=== PATIENT | female | born 1985 | race Caucasian/White ===

== ENCOUNTER 2017-04-01 19:11 | Emergency (ER) | payer OTHER ==
[~2017-04-01] VITALS: Ht 177.8 cm; Wt 81.2 kg
[~2017-04-01 19:11] MED LIST: EXCEDRIN EXTRA1 EAC1 PO; GOLYTELY PACKE1 EACH PO; METHOCARBAMOL500 MG PO; METHOCARBAMOL750 MG PO; NAPROXEN500 MG PO; NORCO 5-325 TA1 EACH PO; OXYCODONE HCL5 MG PO
== END 2017-04-02 01:04 | disposition home or self-care (01) ==
LOC: ED 19:11
DX: R10.31 Right lower quadrant pain (principal); R93.5 Abnormal findings on diagnostic imaging of other abdominal regions, including retroperitoneum; J44.9 Chronic obstructive pulmonary disease, unspecified; F17.200 Nicotine dependence, unspecified, uncomplicated; Z90.89 Acquired absence of other organs; Z98.51 Tubal ligation status; Z79.82 Long term (current) use of aspirin
CPT/HCPCS: 36415; 74176; 74177; 80053; 81001; 83690; 84703; 85025; 96372; 96374; 96375; 99284; J1170; J2270; J2405; Q9967

== ENCOUNTER 2017-06-10 20:00 | Emergency (ER) | payer OTHER ==
[~2017-06-10] VITALS: Ht 177.8 cm; Wt 86.2 kg
[2017-06-10] MEDS ORDERED: TRAMADOL HCL50 MG PO (22:15)
[2017-06-10] MEDS ORDERED: PENICILLIN V P500 MG PO (22:15)
== END 2017-06-11 00:01 | disposition home or self-care (01) ==
LOC: ED 20:00
DX: K02.9 Dental caries, unspecified (principal); J44.9 Chronic obstructive pulmonary disease, unspecified; F17.200 Nicotine dependence, unspecified, uncomplicated; Z90.89 Acquired absence of other organs; Z79.82 Long term (current) use of aspirin
CPT/HCPCS: 99283

== ENCOUNTER 2017-07-06 18:20 | Emergency (ER) | payer OTHER ==
[~2017-07-06] VITALS: Ht 177.8 cm; Wt 86.2 kg
[~2017-07-06 18:20] MED LIST changes: +PENICILLIN V P500 MG PO; +TRAMADOL HCL50 MG PO
[2017-07-06] MEDS ORDERED: CITRATE OF MAG296 ML PO (19:06)
== END 2017-07-06 23:15 | disposition home or self-care (01) ==
LOC: ED 18:20
DX: K59.09 Other constipation (principal); J45.909 Unspecified asthma, uncomplicated; J44.9 Chronic obstructive pulmonary disease, unspecified; F17.200 Nicotine dependence, unspecified, uncomplicated; Z98.51 Tubal ligation status; Z79.82 Long term (current) use of aspirin; Z79.899 Other long term (current) drug therapy
CPT/HCPCS: 74177; 80053; 81001; 83690; 84703; 85025; 96374; 96375; 99284; J1170; J1885; J2405; Q9967

== ENCOUNTER 2017-11-24 16:21 | Emergency (ER) | payer OTHER ==
[~2017-11-24] VITALS: Ht 177.8 cm; Wt 108.9 kg
[~2017-11-24 16:21] MED LIST changes: +CITRATE OF MAG296 ML PO
[2017-11-24] MEDS ORDERED: EXCEDRIN EXTRA1 EAC1 PO (16:37)
== END 2017-11-24 16:40 | disposition home or self-care (01) ==
LOC: ED 16:21
DX: M25.561 Pain in right knee (principal)

== ENCOUNTER 2018-04-23 18:11 | Emergency (ER) | payer OTHER ==
[~2018-04-23] VITALS: Ht 177.8 cm; Wt 108.9 kg
== END 2018-04-23 19:25 | disposition home or self-care (01) ==
LOC: ED 18:11
DX: S60.211A Contusion of right wrist, initial encounter (principal); F17.200 Nicotine dependence, unspecified, uncomplicated; W23.0XXA Caught, crushed, jammed, or pinched between moving objects, initial encounter
CPT/HCPCS: 73110; 99283

== ENCOUNTER 2018-05-05 09:22 | Emergency (ER) | payer OTHER ==
[~2018-05-05] VITALS: Ht 177.8 cm; Wt 108.9 kg
--- OUTSIDE RECORDS SUMMARY | ~2018-05-05 | XMS | Clinical Summary ---
Demographics + + + | Address | [address] | | | [place] [address] | + + + | Home Phone | | + + + | Preferred Language | Unknown | + + + | Marital Status | | + + + | Congregation Affiliation | Unknown | + + + | Race | Unknown | + + + | Ethnic Group | Unknown | + + + Author + + + | Author | [facility] | | | and [place] | + + + | Organization | [facility] | | | and [place] [...] Team Providers + +------+ + | Care Telegraph Office Telephone Clerk Name | Role | Phone | + [...]
--- OUTSIDE RECORDS SUMMARY | ~2018-05-05 | XMS | Clinical Summary ---
Demographics + + + | Address | [address] | | | [place] [address] | + + + | Home Phone | | + + + | Preferred Language | Unknown | + + + | Marital Status | | + + + | Cheondoism Affiliation | Unknown | + + + | Race | Unknown | + + + | Ethnic Group | Unknown | + + + Author + + + | Author | [facility] | | | and [place] | + + + | Organization | [facility] | | | and [place] [...] Team Providers + +------+ + | Care Preform Machine Operator Name | Role | Phone [...]
[2018-05-05] MEDS ORDERED: ADVIL200 M1 PO (09:55)
== END 2018-05-05 09:35 | disposition home or self-care (01) ==
LOC: ED 09:22
DX: S69.91XA Unspecified injury of right wrist, hand and finger(s), initial encounter (principal); W17.89XA Other fall from one level to another, initial encounter

== ENCOUNTER 2018-06-24 18:25 | Emergency (ER) | payer OTHER ==
[~2018-06-24] VITALS: Ht 177.8 cm; Wt 108.9 kg
--- OUTSIDE RECORDS SUMMARY | ~2018-06-24 | XMS | Clinical Summary ---
Demographics + + + | Address | [address] | | | [place] [address] | + + + | Home Phone | | + + + | Preferred Language | Unknown | + + + | Marital Status | | + + + | Worship Affiliation | Unknown | + + + | Race | Unknown | + + + | Ethnic Group | Unknown | + + + Author + + + | Author | [facility] | | | and [place] | + + + | Organization | [facility] | | | and [place] | + + + | Address | Unknown | + + + | Phone | Unavailable | + + + Support + + +---------+ + | Name | Relationship | Address | Phone | + + +---------+ + | Iris Tapia | ECON | Unknown | | + + +---------+ + Care Team Providers + +------+ + | Care Construction Superintendent Name | Role | Phone | + +------+ + | No, Physician | PP | Unavailable | + +------+ + Allergies No Known Allergies Current Medications + + +--------+---------+------+------+-------+ | Prescription | Sig. | Disp. | Refills | Star | End | Statu | | | | | | t | Date | s | | | | | | Date | | | + + +--------+---------+------+------+-------+ | UNABLE TO FIND | Minithin-OTC diet | | | | | Activ | | | pill. | | | | | e | + + +--------+---------+------+------+-------+ | meloxicam (MOBIC) | Take 1 tablet by | 20 | 0 | 05/1 | | Activ | | 7.5 mg | mouth Daily as | tablet | | 5/20 | | e | | tabletIndications: | needed for Pain. | | | 17 | | | | Low back pain, | | | | | | | | unspecified back | | | | | | | | pain laterality, | | | | | | | | unspecified | | | | | | | | chronicity, with | | | | | | | | sciatica presence | | | | | | | | unspecified | | | | | | | + + +--------+---------+------+------+-------+ Active Problems No known active problems Social History + + + +--------+------+ | Tobacco Use | Types | Packs/Day | Years | Date | | | | | Used | | + + + +--------+------+ | Current Every Day | Cigarettes | 1 | | | | Smoker | | | | | + + + +--------+------+ + +---+---+---+ | Smokeless Tobacco: | | | | | Never Used | | | | + +---+---+---+ + + +---------+ + | Alcohol Use | Drinks/We | oz/Week | Comments | | | ek | | | + + +---------+ + | Yes | 0 | 0.0 | rarely | | | Standard | | | | | drinks or | | | | | | | | | | equivalen | | | | | t | | | + + +---------+ + + + + | Sex Assigned at | Date Recorded | | | | + + + | Not on file | | + + + Last Filed Vital Signs + + + + | Vital Sign | Reading | Time Taken | + + + + | Blood Pressure | 126/65 | 02/01/20171226 PDT | + + + + | Pulse | 105 | 02/01/20171226 PDT | + + + + | Temperature | 37.3 C (99.1 F) | 02/01/20171226 PDT | + + + + | Respiratory Rate | 16 | 02/01/20171226 PDT | + + + + | Oxygen Saturation | 100% | 02/01/20171226 PDT | + + + + | Inhaled Oxygen | - | - | | Concentration | | | + + + + | Weight | 85.6 kg (188 lb 12.8 | 02/01/2017 1227 PDT | | | oz) | | + + + + | Height | 177.8 cm (5' 10") | 02/01/2017 1227 PDT | + + + + | Body Mass Index | 27.09 | 02/01/2017 1227 PDT | + + + + Plan of Treatment + + + + + | Health Maintenance | Due Date | Last Done | Comments | + + + + + | Vaccine: | | | | | Dtap/Tdap/Td (1 - | 4 | | | | Tdap) | | | | + + + + + | Vaccine: | | | | | Pneumococcal 19-64 | 4 | | | | (PPSV23 only) Medium | | | | | Risk (1 of 1 - | | | | | PPSV23) | | | | + + + + + | Cervical Cancer | | | | | Screening (Pap) | 5 | | | + + + + + | Vaccine: Influenza | | | | | (#1) | 8 | | | + + + + + Results Not on filefrom Last 3 Months
--- OUTSIDE RECORDS SUMMARY | ~2018-06-24 | XMS | Clinical Summary ---
Demographics + + + | Address | [address] | | | [place] [address] | + + + | Home Phone | | + + + | Preferred Language | Unknown | + + + | Marital Status | | + + + | Voodoo Affiliation | Unknown | + + + | Race | Unknown | + + + | Ethnic Group | Unknown | + + + Author + + + | Author | [facility] | | | and [place] | + + + | Organization | [facility] | | | and [place] | [...] Team Providers + +------+ + | Care Commissions Manager Name | Role | Phone | [...]
[~2018-06-24 18:25] MED LIST changes: +ADVIL200 M1 PO
--- OUTSIDE RECORDS SUMMARY | 2018-06-24 18:30 | XMS ---
PreManage Notification: DAFNE HANSEN Security Supervisor Carding Events No recent Security Events currently on file CRITERIA MET - Group Notification - [facility] - Has Care Guidelines CARE PROVIDERS There are no care providers on record at this time. Guidelines Source: [facility] Guidelines Date: 04/07/2017 Care Coordination: ENCOURAGE PATIENT TO FIND AND USE A PCP FOR CHRONIC AND NON-EMERGENT MEDICAL PROBLEMS. GIVE PATIENT MEDICAL OFFICE ASSISTANTKNOT SAW OPERATOR INFORMATION TO CALL FOR HELP AND QUESTIONS. CHRIS ESPINOSA, RN [phone] [employer] [facility] Yogesh VISIT COUNT (12 MO.) 5 [facility] H. TOTAL 5 NOTE: Visits indicate total known visits. ED/UCC VISIT TRACKING (12 MO.) 06/24/2018 18:26 [facility] [place] [facility] [place] TYPE: Emergency COMPLAINT: - ABD PAIN/BLOOD IN STOOL 05/05/2018 09:22 [facility] [place] [facility] [place] TYPE: Emergency COMPLAINT: - R WRIST INJURY DIAGNOSES: - Unspecified injury of right wrist, hand and finger(s), initial encounter - Other fall from one level to another, initial encounter 04/23/2018 18:12 [facility] [place] [facility] [place] TYPE: Emergency COMPLAINT: - RT WRIST INJURY DIAGNOSES: - Caught, crushed, jammed, or pinched between moving objects, initial encounter - Unspecified injury of right wrist, hand and finger(s), initial encounter - Nicotine dependence, unspecified, uncomplicated - Contusion of right wrist, initial encounter 11/24/2017 16:22 [facility] [place] TYPE: Emergency COMPLAINT: - R KNEE PAIN/NO INJURY DIAGNOSES: - Pain in right knee 07/06/2017 18:[address] [facility] [place] TYPE: Emergency COMPLAINT: - ABD PAIN DIAGNOSES: - Chronic obstructive pulmonary disease, unspecified - Other constipation - residential (current) use of aspirin - Other exterminator helper (current) drug therapy - Nicotine dependence, unspecified, uncomplicated - Tubal ligation status - Unspecified asthma, uncomplicated - Left lower quadrant pain INPATIENT VISIT TRACKING (12 MO.) No inpatient visits to display in this time frame [email or web address]
[2018-06-24] MEDS ORDERED: CITRATE OF MAG296 ML PO (18:53)
[2018-06-24] MEDS ORDERED: DICYCLOMINE HCL10 MG PO (22:23)
[2018-06-26] MEDS ORDERED: DICYCLOMINE HCL10 MG PO (08:09)
== END 2018-06-24 22:58 | disposition home or self-care (01) ==
LOC: ED 18:25
DX: R19.7 Diarrhea, unspecified (principal); J44.9 Chronic obstructive pulmonary disease, unspecified; F17.200 Nicotine dependence, unspecified, uncomplicated
CPT/HCPCS: 74177; 80053; 81001; 83690; 84703; 85025; 96374; 96375; 96376; 99284; J2270; J2405; Q9967

== ENCOUNTER 2018-12-18 16:03 | Emergency (ER) | payer OTHER ==
[~2018-12-18] VITALS: Ht 177.8 cm; Wt 108.9 kg
--- OUTSIDE RECORDS SUMMARY | ~2018-12-18 | XMS | Clinical Summary ---
Demographics + + + | Address | [address] | | | [place] [address] | + + + | Home Phone | | + + + | Preferred Language | Unknown | + + + | Marital Status | | + + + | Jainism Affiliation | Unknown | + + + | Race | Unknown | + + + | Ethnic Group | Unknown | + + + Author + + + | Author | [facility] | | | and [place] | + + + | Organization | [facility] | | | and [place] [...] Team Providers + +------+ + | Care Center Mgr Name | Role | Phone | + [...]
--- OUTSIDE RECORDS SUMMARY | ~2018-12-18 | XMS | Clinical Summary ---
Demographics + + + | Address | [address] | | | [place] [address] | + + + | Home Phone | | + + + | Preferred Language | Unknown | + + + | Marital Status | | + + + | Islam Affiliation | Unknown | + + + | Race | Unknown | + + + | Ethnic Group | Unknown | + + + Author + + + | Author | [facility] | | | and [place] | + + + | Organization | [facility] | | | and [place] [...] Team Providers + +------+ + | Care Spinning Frame Fixer Name | Role | Phone | + [...]
[~2018-12-18 16:03] MED LIST changes: +DICYCLOMINE HCL10 MG PO
--- OUTSIDE RECORDS SUMMARY | 2018-12-18 16:06 | XMS ---
PreManage Notification: DAFNE HANSEN Security Campus Receptionist Events No recent Security Events currently on file CRITERIA MET - Group Notification - [facility] - Has Care Guidelines CARE PROVIDERS There are no care providers on record at this time. Guidelines Source: [facility] Guidelines Date: 04/07/2017 Care Coordination: ENCOURAGE PATIENT TO FIND AND USE A PCP FOR CHRONIC AND NON-EMERGENT MEDICAL PROBLEMS. GIVE PATIENT CIGARETTE PACKERCAR BODY DESIGNER INFORMATION TO CALL FOR HELP AND QUESTIONS. CHRIS ESPINOSA, RN [phone] SOFTWARE SUPPORT TECHNICIAN [facility] Yogesh VISIT COUNT (12 MO.) 4 [facility] H. TOTAL 4 NOTE: Visits indicate total known visits. ED/UCC VISIT TRACKING (12 MO.) 12/18/2018 16:04 [facility] [place] [facility] [place] TYPE: Emergency COMPLAINT: - TOOTH/EAR PAIN 06/24/2018 18:[address] [facility] [facility] [place] TYPE: Emergency COMPLAINT: - ABD PAIN/BLOOD IN STOOL DIAGNOSES: - Diarrhea, unspecified - Generalized abdominal pain - Nicotine dependence, unspecified, uncomplicated - Chronic obstructive pulmonary disease, unspecified 05/05/2018 09:22 [facility] [place] [facility] [place] TYPE: Emergency COMPLAINT: - R WRIST INJURY DIAGNOSES: - Unspecified injury of right wrist, hand and finger(s), initial encounter - Other fall from one level to another, initial encounter 04/23/2018 18:12 [facility] [place] [facility] [place] TYPE: Emergency COMPLAINT: - RT WRIST INJURY DIAGNOSES: - Caught, crushed, jammed, or pinched between moving objects, initial encounter - Unspecified injury of right wrist, hand and finger(s), initial encounter - Nicotine dependence, unspecified, uncomplicated - Contusion of right wrist, initial encounter INPATIENT VISIT TRACKING (12 MO.) No inpatient visits to display in this time frame [id number]
== END 2018-12-18 16:22 | disposition home or self-care (01) ==
LOC: ED 16:03
DX: K08.89 Other specified disorders of teeth and supporting structures (principal); H92.09 Otalgia, unspecified ear

== ENCOUNTER 2019-06-21 18:55 | Emergency (ER) | payer OTHER ==
[~2019-06-21] VITALS: Ht 177.8 cm; Wt 108.9 kg
--- OUTSIDE RECORDS SUMMARY | ~2019-06-21 | XMS | Clinical Summary ---
Demographics + + + | Address | [address] | | | [place] [address] | + + + | Home Phone | | + + + | Preferred Language | Unknown | + + + | Marital Status | | + + + | Sabianism Affiliation | Unknown | + + + | Race | Unknown | + + + | Ethnic Group | Unknown | + + + Author + + + | Author | [facility] | | | and [place] | + + + | Organization | [facility] | | | and [place] | [...] Team Providers + +------+ + | Care Liner Machine Operator Name | Role | Phone | + [...] on file | | + + + + + + + | Job Start Date | Occupation | Industry | + + + + | Not on file | Not on file | Not on file | + + + + + + + + | Travel History | Travel Start | Travel End | + + + + + + | No recent travel history available. | + + Last Filed Vital Signs + + + + | Vital Sign | Reading | Time Taken | + + + + | Blood Pressure | 126/65 | 02/01/2017 1227 PDT | + + [...] | 85.6 kg (188 lb 12.8 | 02/01/20171226 PDT | | | oz) | | [...] | | | | | (#1) | 9 | | | + + + + + Results Not on filefrom Last 3 Months Advance Directives Patient has advance care planning documents on file. For more information, please contact:[facility] [place] [address]
--- OUTSIDE RECORDS SUMMARY | ~2019-06-21 | XMS | Clinical Summary ---
Demographics + + + | Address | [address] | | | [place] [address] | + + + | Home Phone | | + + + | Preferred Language | Unknown | + + + | Marital Status | | + + + | Baptist Affiliation | Unknown | + + + | Race | Unknown | + + + | Ethnic Group | Unknown | + + + Author + + + | Author | [facility] | | | and [place] | + + + | Organization | [facility] | | | and [place] | [...] Team Providers + +------+ + | Care Financial Administrative Assistant Name | Role | Phone | + [...] documents on file. For more information, please contact:[facility] [place] [address]
[2019-06-21] MEDS ORDERED: EXCEDRIN MIGRA1 EAC2 PO (19:06)
[2019-06-21] MEDS ORDERED: AZITHROMYCIN250 MG PO (20:03)
[2019-06-21] MEDS ORDERED: PROVENTIL HFA6.7 GM INH (20:03)
== END 2019-06-21 20:29 | disposition home or self-care (01) ==
LOC: ED 18:55
DX: J20.9 Acute bronchitis, unspecified (principal); F17.200 Nicotine dependence, unspecified, uncomplicated
CPT/HCPCS: 71046; 94640; 99283-25

== ENCOUNTER 2019-12-12 19:11 | Emergency (ER) | payer OTHER ==
[~2019-12-12] VITALS: Ht 177.8 cm; Wt 108.9 kg
[~2019-12-12 19:11] MED LIST changes: +AZITHROMYCIN250 MG PO; +EXCEDRIN MIGRA1 EAC2 PO; +PROVENTIL HFA6.7 GM INH
[2019-12-12] MEDS ORDERED: IBU-200200 MG PO (19:27)
[2019-12-12] MEDS ORDERED: EXCEDRIN EXTRA1 EAC1 PO (19:27)
[2019-12-12] MEDS ORDERED: KEFLEX500 MG PO (20:22)
== END 2019-12-12 20:37 | disposition home or self-care (01) ==
LOC: ED 19:11
DX: K02.9 Dental caries, unspecified (principal); J44.9 Chronic obstructive pulmonary disease, unspecified; F17.200 Nicotine dependence, unspecified, uncomplicated
CPT/HCPCS: 99282

== ENCOUNTER 2020-04-26 12:50 | Emergency (ER) | payer OTHER ==
[~2020-04-26] VITALS: Ht 177.8 cm; Wt 108.9 kg
--- OUTSIDE RECORDS SUMMARY | ~2020-04-26 | XMS | Clinical Summary ---
Demographics + + + | Address | [address] | | | [place] [address] | + + + | Home Phone | | + + + | Preferred Language | Unknown | + + + | Marital Status | | + + + | Tenriism Affiliation | Unknown | + + + | Race | Unknown | + + + | Ethnic Group | Unknown | + + + Author + + + | Author | [facility] | | | and [place] | + + + | Organization | [facility] | | | and [place] | [...] Team Providers + +------+ + | Care Cloud Solutions Architect Name | Role | Phone | + +------+ + | No, Physician | PCP | Unavailable | + +------+ + Allergies No Known Allergies Medications + + + +---------+------+------+-------+ | Medication | Sig | Dispensed | Refills | Star | End | Statu | | | | | | t | Date | s | | | | | | Date | | | + + + +---------+------+------+-------+ | UNABLE TO FIND | Minithin-OTC diet | | 0 | | | Activ | | | pill. | | | | | e | + + + +---------+------+------+-------+ | meloxicam (MOBIC) | Take 1 tablet [...] | | | | + + + +---------+------+------+-------+ Active Problems No known active problems Social [...] + +---------+ + | Alcohol Use | Drinks/Week | oz/Week | Comments | + + +---------+ + | Yes | 0 Standard drinks | 0.0 | rarely | | | or equivalent | | | + + +---------+ + + + + | Sex Assigned at | Date Recorded | | | | + + + | Not on file | | + + + Last Filed Vital Signs + + + + + | Vital Sign | Reading | Time Taken | Comments | + + + + + | Blood Pressure | 126/65 | 02/01/2017 12:27 PM | | | | | PDT | | + + + + + | Pulse | 105 | 02/01/2017 12:27 PM | | | | | PDT | | + + + + + | Temperature | 37.3 C (99.1 F) | 02/01/2017 12:27 PM | | | | | PDT | | + + + + + | Respiratory Rate | 16 | 02/01/2017 12:27 PM | | | | | PDT | | + + + + + | Oxygen Saturation | 100% | 02/01/2017 12:27 PM | | | | | PDT | | + + + + + | Inhaled Oxygen | - | - | | | Concentration | | | | + + + + + | Weight | 85.6 kg (188 lb 12.8 | 02/01/2017 12:27 PM | | | | oz) | PDT | | + + + + + | Height | 177.8 cm (5' 10") | 02/01/2017 12:27 PM | | | | | PDT | | + + + + + | Body Mass Index | 27.09 | 02/01/2017 12:27 PM | | | | | PDT | | + + + + + Plan of Treatment + + +-------+ + | Health Maintenance | Due Date | Last | Comments | | | | Done | | + + +-------+ + | Vaccine: | | | | | Dtap/Tdap/Td (1 - | 4 | | | | Tdap) | | | | + + +-------+ + | Cervical Cancer | | | | | Screening (Pap) | 5 | | | + + +-------+ + | Vaccine: Influenza | | | | | (#1) | 0 | | | + + +-------+ + Results Not on filefrom Last 3 Months Advance Directives + + + + + | Type | Date Recorded | Patient | Explanation | | | | Director Of Strategy & Mobile | | + + + + + | Power of | | | | | Grinder Set Up Operator External | | | | + + + + + | Advance | 09/28/2016 10:21 | | | | Directive | PM | | | + + + + +
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
--- OUTSIDE RECORDS SUMMARY | ~2020-04-26 | XMS | Encounter Summary ---
Demographics + + + | Address | [address] | | | [place] [address] | + + + | Home Phone | | + + + | Preferred Language | Unknown | + + + | Marital Status | | + + + | Adventism Affiliation | Unknown | + + + | Race | Unknown | + + + | Ethnic Group | Unknown | + + + Author + + + | Author | [facility] | | | and [place] | + + + | Organization | [facility] | [...] Team Providers + +------+ + | Care Proration Clerk Name | Role | Phone | + +------+ + | No, Physician | PCP | Unavailable | + +------+ + Encounter Details +--------+ + + + + | Date | Type | Department | Care Team | Description | +--------+ + + + + | 01/26/ | Hospital | [facility] | Angelina Treviño | Back contusion, | | 2017 | Encounter | [facility] | MD Charity [address] | unspecified | | | | [address] [place] | [address] [place] | laterality, initial | | | | [place], [place] | [place] [address] | encounter; Place of | | | | [address] | [phone] | occurrence, | | | | [phone] | | industrial places | | | | | | and premises | +--------+ + + + + Social History + + [...] + + documented as of this encounter Medications at Time of Discharge + + + +---------+--------+ + | Medication | Sig | Dispensed | Refills | Start | End Date | | | | | | Date | | + + + +---------+--------+ + | UNABLE TO FIND | Minithin-OTC diet | | 0 | | | | | pill. | | | | | + + + +---------+--------+ + | Meloxicam (MOBIC | Take by mouth. | | 0 | | | | PO) | | | | | 7 | + + + +---------+--------+ + documented as of this encounter Plan of Treatment Not on filedocumented as of this encounter Procedures + +--------+ + + + | Procedure Name | Priori | Date/Time | Associated Diagnosis | Comments | | | ty | | | | + +--------+ + + + | XR LUMBAR SPINE 2 OR | Routin | 01/26/2017 | Back contusion, | Results for this | | 3 VW | e | 11:34 AM | unspecified | procedure are in the | | | | PDT | laterality, initial | results section. | | | | | encounter Place of | | | | | | occurrence, | | | | | | industrial places | | | | | | and premises | | + +--------+ + + + documented in this encounter Results XR Lumbar Spine 2 or 3 Vw (01/26/2017 11:34 AM PDT) + + | Specimen | + + | | + + + + + | Narrative | Performed At | + + + | XR LUMBAR SPINE 2 OR 3 VW 01/26/2017 11:34 AM HISTORY: pain. | [facility] | | COMPARISON: None. FINDINGS: There are no acute osseous findings. | [facility] | | Vertebral body height are preserved with no evidence for compression | [facility] | | fractures. Disc height are maintained. Facet joints are intact. | - IMAGING | | Visualized ribs and pelvic osseous structures show no acute findings. | | | There are cholecystectomy clips. IMPRESSION - No acute findings, | | | no significant degenerative changes. Dictated and Signed by: | | | Luis Krause MD Electronically signed: 01/26/2017 11:38 AM | | + + + + + | Procedure Note | + + | Sahil, Rad Results In - 01/26/2017 11:41 AM PDT XR LUMBAR SPINE 2 OR 3 VW 01/26/2017 | | 11:34 AMHISTORY: pain.COMPARISON: None.FINDINGS:There are no acute osseous findings. | | Vertebral body height are preserved with noevidence for compression fractures. Disc | | height are maintained. Facet joints areintact. Visualized ribs and pelvic osseous | | structures show no acute findings.There are cholecystectomy clips.IMPRESSION -No acute | | findings, no significant degenerative changes.Dictated and Signed by: Luis Krause MD | | Electronically signed: 01/26/2017 11:38 AM | |There are no acute osseous findings. Vertebral body height are preserved with no | |evidence for compression fractures. Disc height are maintained. Facet joints are | |intact. Visualized ribs and pelvic osseous structures show no acute findings. | |There are cholecystectomy clips. | | | |IMPRESSION - | |No acute findings, no significant degenerative changes. | | | |Dictated and Signed by: Luis Krause MD | | Electronically signed: 01/26/2017 11:38 AM | + + + + + + + | Performing | Address | City/State/Zipcode | Phone Number | | Organization | | | | + + + + + | [facility] | [address] | [place] | [phone] | | [facility] | | [address] | | | - IMAGING | | | | + + + + + documented in this encounter Visit Diagnoses + + | Diagnosis | + + | Back contusion, unspecified laterality, initial encounter | + + | Place of occurrence, industrial places and premises | + + documented in this encounter"
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
--- OUTSIDE RECORDS SUMMARY | ~2020-04-26 | XMS | Encounter Summary ---
Demographics + + + | Address | [address] | | | [place] [address] | + + + | Home Phone | | + + + | Preferred Language | Unknown | + + + | Marital Status | | + + + | Bahai Affiliation | Unknown | + + + | Race | Unknown | + + + | Ethnic Group | Unknown | + + + Author + + + | Author | [facility] | | | and [place] | + + + | Organization | [facility] [...] Team Providers + +------+ + | Care Marketing Clerk Name | Role | Phone | + +------+ + | No, Physician | PCP | Unavailable | + +------+ + Reason for Visit + + + | Reason | Comments | + + + | Follow-up | room 4/ back pain, OM inj, 12/24/16 | + + + Encounter Details +--------+---------+ + + + | Date | Type | Department | Care Team | Description | +--------+---------+ + + + | 02/01/ | Office | [facility] | Yary Beckwith | Low back pain, | | 2016 | Visit | CARE [address] | Ronald Sebastian MD | unspecified back | | | | [place] | [address] | pain laterality, | | | | [address] | [place] | unspecified | | | | [phone] | [address] | chronicity, with | | | | | | sciatica presence | | | | | | unspecified (Primary | | | | | | Dx) | +--------+---------+ + + + Social History [...] + + + documented in this encounter Patient Instructions Patient Instructions Yary Beckwith Jr., MD - 02/01/2017 12:56 PM PDTTake medicati ons as prescribed Have MRI done when approved Follow-up with Dr. Garcialectronically signed by Yary Beckwith Jr., MD at 017 12:57 PM PDT documented in this encounter Progress Notes Yary Beckwith Jr., MD - 02/01/2017 3:08 PM PDTEmployer: Romaine [employer] Claim #: [id number] Date of Injury: 12/24/2016 Insurance carrier: [employer] Chief Complaint: Back injury HPI: Patient has had a changing story documented on her visit of 01/26. She was initially s een and in the ER down in [place]. She has a pending MRI test because of numbness in both legs after her back injury. A plain x-ray showed no bony abnormality. She continues to co mplain of numbness and low back pain which is worse on the left side. Needs a refill on her Robaxin and has been taking ibuprofen 4 times a day Past medical history, past surgical history, medication reviewed. Physical Exam: No acute distress, alert and oriented, non-toxic in appearance BP 126/65 mmHg | Pulse 105 | Temp(Src) 37.3 C (99.1 F) (Temporal) | Resp 16 | Ht 1.778 m (5' 10") | Wt 85.639 kg (188 lb 12.8 oz) | BMI 27.09 kg/m2 | SpO2 100% Back: No tenderness over the spine, tenderness over the left sacroiliac area, rotation and side bending causes no discomfort, sensory exam shows decreased pinprick in an L5 distributi on on the left, reflexes show absent reflexes at the right knee otherwise symmetric, motor t esting reveals no weakness and straight leg raising is negative Diagnosis: Decreased sensation in L5 on the left with low back pain - MRI is pending Plan: Have MRI done in call for the results, refmarcos Pate, low back-to stop ibuprofen This note dictated with Dorothea and was not proofread. document ed in this encounter Plan of Treatment Not on filedocumented as of this encounter Visit Diagnoses + + | Diagnosis | + + | Low back pain, unspecified back pain laterality, unspecified chronicity, with sciatica | | presence unspecified - Primary | + + documented in this encounter
--- OUTSIDE RECORDS SUMMARY | ~2020-04-26 | XMS | Encounter Summary ---
Demographics + + + | Address | [address] | | | [place] [address] | + + + | Home Phone | | + + + | Preferred Language | Unknown | + + + | Marital Status | | + + + | Yarsanism Affiliation | Unknown | + + + | Race | Unknown | + + + | Ethnic Group | Unknown | + + + Author + + + | Author | [facility] | | | and [place] | + + + | Organization | [facility] | | | and [place] [...] Team Providers + +------+ + | Care Laundry Manager Name | Role | Phone | + +------+ + | No, Physician | PCP | Unavailable | + +------+ + Reason for Visit + + + | Reason | Comments | + + + | Abdominal Pain | | + + + | Vaginal Bleeding | | + + + Encounter Details +--------+ + + + + | Date | Type | Department | Care Team | Description | +--------+ + + + + | 09/28/ | Emergency | [facility] | Dean Camargo, | Menometrorrhagia | | 2017 | | [facility] | MD [address] | (Primary Dx) | | | | CENTER [address] | [facility] [place] | | | | | [place], [place] | [place] [address] | | | | | [address] | [phone] | | | | | [phone] | | | +--------+ + + + + Social History + + + +--------+------+ | Tobacco Use | Types | Packs/Day | Years | Date | | | | | Used | | + + + +--------+------+ | Current Every Day | Cigarettes | 1 | | | | Smoker | | | | | + + + +--------+------+ + + +---------+ + | Alcohol Use | Drinks/Week | oz/Week | Comments | + + +---------+ + | Yes | | | rarely | + + +---------+ + + + [...] + + + | Blood Pressure | 136/87 | 09/28/2016 10:11 PM | | | | | PST | | + + + + + | Pulse | 94 | 09/28/2016 10:11 PM | | | | | PST | | + + + + + | Temperature | 37 C (98.6 F) | 09/28/2016 7:27 PM | | | | | PST | | + + + + + | Respiratory Rate | 16 | 09/28/2016 10:11 PM | | | | | PST | | + + + + + | Oxygen Saturation | 96% | 09/28/2016 10:11 PM | | | | | PST | | + + + + + | Inhaled Oxygen | - | - | | | Concentration | | | | + + + + + | Weight | 97.5 kg (215 lb) | 09/28/2016 7:27 PM | | | | | PST | | + + + + + | Height | 177.8 cm (5' 10") | 09/28/2016 7:27 PM | | | | | PST | | + + + + + | Body Mass Index | 30.85 | 09/28/2016 7:27 PM | | | | | PST | | + + + + + documented in this encounter Discharge Instructions Instructions Dean Camargo MD - 09/28/2016Scheduled ibuprofen for 5 days Follow-up with PRODUCTION OPERATOR AttachmentsThe following attachments cannot be sent through Care Everywhere.DYSFUNCTIONAL U TERINE BLEEDING (CHINESE)documented in this encounter Medications at Time of Discharge + + + +---------+ + + | Medication | Sig | Dispensed | Refills | Start | End Date | | | | | | Date | | + + + +---------+ + + | UNABLE TO FIND | Minithin-OTC diet | | 0 | | | | | pill. | | | | | + + + +---------+ + + | ibuprofen | Take 1 tablet by | 20 | 0 | 09/28/19 | | | (ADVIL,MOTRIN) 600 | mouth every 6 hours | tablet | | 17 | 7 | | MG tablet | as needed for Pain | | | | | | | for up to 5 days. | | | | | + + + +---------+ + + documented as of this encounter ED Notes Dean Camargo MD - 09/28/2016 8:00 PM PSTFormatting of this note might be different f rom the original. [facility] Emergency Department Encounter Note [address] [place] [id number] PCP:No Physician on file [phone] CHIEF COMPLAINT Chief Complaint Patient presents with Abdominal Pain Vaginal Bleeding [facility] Janay Tapia is a 31 y.o. female who presents to the emergency department with vagi nal bleeding and lower abdominal cramping and low back pain. This patient normally has her menstrual periods towards the end of month. She had one in August that was normal. Short ly after that she started becoming sexually active, 2 weeks ago, after 6 months of no sexual activity. 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 The vaginal bleeding has been heavy with clots at times. She has gone through 8 ramesh dai and 5 pads today. She did go to work. She came to the ER this evening. She is having continued lower abdominal pain. She has had cough and cold symptoms recently. She does no t take any oral contraceptives. She had a tubal ligation 2 years ago. She has had a prior cholecystectomy. She is providing her own history. She denies any injuries. She says it f eels like when she had a miscarriage in the past. She denies any dysuria or frequency of ur ination. No diarrhea or constipation. PAST MEDICAL HISTORY Past Medical History Diagnosis Date Asthma SURGICAL HISTORY Past Surgical History Procedure Laterality Date section Cholecystectomy Knee surgery CURRENT MEDICATIONS Discharge Medication List as of 09/28/2016 21:57 CONTINUE these medications which have NOT CHANGED Details UNABLE TO FIND Minithin-OTC diet pill.Historical Med ALLERGIES No Known Allergies FAMILY HISTORY History reviewed. No pertinent family history. SOCIAL HISTORY Social History Social History Marital Status: Spouse Name: N/A Number of Children: N/A Years of Education: N/A Social History Main Topics Smoking status: Current Every Day Smoker -- 1.00 packs/day Types: Cigarettes Smokeless tobacco: None Alcohol Use: Yes Comment: rarely Drug Use: No Sexual Activity: Not Asked Other Topics Concern None Social History Narrative None REVIEW OF SYSTEMS All systems reviewed and found negative except what is in the HPI PHYSICAL EXAM VITAL SIGNS: BP 129/97 mmHg | Pulse 89 | Temp(Src) 37 C (98.6 F) (Oral) | Resp 16 | Ht 1.778 m (5' 10") | Wt 97.523 kg (215 lb) | BMI 30.85 kg/m2 | SpO2 100% | LMP 09/15/2016 | B reastfeeding? No Constitutional: Well developed, Well nourished, No acute distress, Non-toxic appearance. HENT: Normocephalic, Atraumatic, Bilateral external ears normal, Mucous membranes are mois t, Nasal mucosa is normal. Poor dentition. No oral pharyngeal lesions. Eyes: Conjunctiva normal, No discharge. Palpebral conjunctiva are pink. No scleral icteru s. Neck: Normal range of motion, No tenderness, Supple, No stridor. Respiratory: Clear to auscultation bilaterally, No respiratory distress, No wheezing Cardiovascular: Normal heart rate, Normal rhythm GI: Soft, tender in the bilateral lower quadrants and suprapubic area. No peritoneal signs , No masses Extremities: Warm and well perfused, no edema, no joint swelling or deformity. Good ROM. Back: No CVAT, mild bilateral paraspinal tenderness of the lumbar area. No thoracic spine tenderness.. Skin: Warm, Dry, No erythema, No induration, No rash. No jaundice. Neurologic: Alert & oriented x 3, No focal motor or sensory deficits. Speech is clear. G ait is normal. ED COURSE & MEDICAL DECISION MAKING Pertinent Labs & Imaging studies reviewed. (See chart for details) The patient was seen and examined shortly after arriving in the emergency department. Hist ory and physical were obtained, vital signs were noted. Urine sample was obtained which is dip negative for . The urine dip is contaminated by the vaginal bleeding. White b lood cell count is elevated at 14. H&H are unremarkable. Urine test was negative . I double checked this with a serum test which is also negative. She has menome trorrhagia. Outpatient follow-up with PRODUCTION OPERATOR is indicated. FINAL IMPRESSION 1. Menometrorrhagia PLAN Follow-up Information Schedule an appointment as soon as possible for a visit with Rolando Lizarraga DO. Specialty: Obstetrics and Gynecology Contact information: [facility] [place] [id number] Discharge Medication List as of 09/28/2016 21:57 START taking these medications Details ibuprofen (ADVIL,MOTRIN) 600 MG tablet Take 1 tablet by mouth every 6 hours as needed for P ain for up to 5 days.Disp-20 tablet, R-0, Print Dean Camargo MD 09/28/16 [id number] docume nted in this encounter Miscellaneous Notes ED Triage Notes - Ese José RN - 09/28/2016 7:26 PM PSTPt c/o lower abdominal ally n since early this morning and vaginal bleeding. 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 document ed in this encounter Plan of Treatment Not on filedocumented as of this encounter Procedures + +--------+ + + + | Procedure Name | Priori | Date/Time | Associated Diagnosis | Comments | | | ty | | | | + +--------+ + + + | CBC WITH | STAT | 09/28/2016 | | Results for this | | DIFFERENTIAL | | 8:50 PM | | procedure are in the | | | | PST | | results section. | + +--------+ + + + | HCG, SERUM, QUANT | STAT | 09/28/2016 | | Results for this | | | | 8:50 PM | | procedure are in the | | | | PST | | results section. | + +--------+ + + + | COMPREHENSIVE | STAT | 09/28/2016 | | Results for this | | METABOLIC PANEL | | 8:50 PM | | procedure are in the | | | | PST | | results section. | + +--------+ + + + | URINALYSIS WITH | STAT | 09/28/2016 | | Results for this | | MICROSCOPIC | | 8:16 PM | | procedure are in the | | | | PST | | results section. | + +--------+ + + + | POCT URINALYSIS, | STAT | 09/28/2016 | | Results for this | | AUTO WITH CONF | | 7:49 PM | | procedure are in the | | | | PST | | results section. | + +--------+ + + + | POCT TEST, | STAT | 09/28/2016 | | Results for this | | URINE, QUAL | | 7:48 PM | | procedure are in the | | | | PST | | results section. | + +--------+ + + + documented in this encounter Results Comprehensive Metabolic Panel (09/28/2016 8:50 PM PST) + + + + + + | Component | Value | Ref Range | Performed | Pathologist | | | | | At | Signature | + + + + + + | Na | 139 | 136 - 149 | [facility] | | | | | mmol/L | [facility] | | | | | | MEDICAL | | | | | | CENTER - | | | | | | LABORATORY | | + + + + + + | K | 4.1 | 3.5 - 5.1 | [facility] | | | | | mmol/L | [facility] | | | | | | MEDICAL | | | | | | CENTER - | | | | | | LABORATORY | | + + + + + + | Cl | 100 | 98 - 109 mmol/L | [facility] | | | | | | [facility] | | | | | | MEDICAL | | | | | | CENTER - | | | | | | LABORATORY | | + + + + + + | CO2 | 27 | 24 - 31 mmol/L | [facility] | | | | | | [facility] | | | | | | MEDICAL | | | | | | CENTER - | | | | | | LABORATORY | | + + + + + + | Anion Gap | 12 | 3 - 16 mmol/L | [facility] | | | | | | [facility] | | | | | | MEDICAL | | | | | | CENTER - | | | | | | LABORATORY | | + + + + + + | Glucose | 108 | 70 - 109 mg/dL | [facility] | | | | | | [facility] | | | | | | MEDICAL | | | | | | CENTER - | | | | | | LABORATORY | | + + + + + + | BUN | 16 | 7 - 18 mg/dL | [facility] | | | | | | [facility] | | | | | | MEDICAL | | | | | | CENTER - | | | | | | LABORATORY | | + + + + + + | Creatinine | 0.83 | 0.60 - 1.30 | [facility] | | | | | mg/dL | [facility] | | | | | | MEDICAL | | | | | | CENTER - | | | | | | LABORATORY | | + + + + + + | eGFR, | 80Comment: GLOMERULAR | mL/min/1.73m2 | [facility] | | | non- | FILTRATION | | [facility] | | | [place] | RATE,ESTIMATED | | MEDICAL | | | | mL/min/1.59j8Mzve than | | CENTER - | | | | 60 Chronic kidney | | LABORATORY | | | | disease,if found over a | | | | | | 3-month period.Less than | | | | | | 15 Kidney failureFor | | | | | | | | | | | | Americans,multiply the | | | | | | calculated GFR by 1.21. | | | | | | | | | | + + + + + + | Calcium | 9.7 | 8.3 - 10.5 | [facility] | | | | | mg/dL | [facility] | | | | | | MEDICAL | | | | | | CENTER - | | | | | | LABORATORY | | + + + + + + | Albumin | 4.0 | 3.2 - 5.0 g/dL | [facility] | | | | | | [facility] | | | | | | MEDICAL | | | | | | CENTER - | | | | | | LABORATORY | | + + + + + + | Bilirubin | 0.5Comment: This is an | 0.1 - 1.5 mg/dL | [facility] | | | Total | appended report. These | | [facility] | | | | results have been | | MEDICAL | | | | appended to a previously | | CENTER - | | | | preliminary verified | | LABORATORY | | | | report. | | | | + + + + + + | Total | 7.4 | 6.0 - 7.8 g/dL | [facility] | | | Protein | | | [facility] | | | | | | MEDICAL | | | | | | CENTER - | | | | | | LABORATORY | | + + + + + + | AST | 17Comment: This is an | 10 - 42 U/L | [facility] | | | | appended report. These | | [facility] | | | | results have been | | MEDICAL | | | | appended to a previously | | CENTER - | | | | preliminary verified | | LABORATORY | | | | report. | | | | + + + + + + | ALT | 15Comment: This is an | 6 - 45 U/L | [facility] | | | | appended report. These | | [facility] | | | | results have been | | MEDICAL | | | | appended to a previously | | CENTER - | | | | preliminary verified | | LABORATORY | | | | report. | | | | + + + + + + | Alkaline | 87Comment: This is an | 40 - 110 U/L | [facility] | | | Phosphatase | appended report. These | | [facility] | | | | results have been | | MEDICAL | | | | appended to a previously | | CENTER - | | | | preliminary verified | | LABORATORY | | | | report. | | | | + + + + + + | Globulin | 3.4 | 2.1 - 3.8 g/dL | [facility] | | | | | | [facility] | | | | | | MEDICAL | | | | | | CENTER - | | | | | | LABORATORY | | + + + + + + | Albumin/Asha | 1.2 | 0.8 - 2.0 | [facility] | | | bulin Ratio | | | [facility] | | | | | | MEDICAL | | | | | | CENTER - | | | | | | LABORATORY | | + + + + + + | BUN/Creatin | 19.3 | | [facility] | | | ine Ratio | | | [facility] | | | | | | MEDICAL | | | | | | CENTER - | | | | | | LABORATORY | | + + + + + + + + | Specimen | + + | Blood | + + + + + + + | Performing | Address | City/State/Zipcode | Phone Number | | Organization | | | | + + + + + | [facility] | [address] | [place] | [phone] | | [facility] | | [address] | | | - LABORATORY | | | | + + + + + CBC with Differential (09/28/2016 8:50 PM PST) + + + + + + | Component | Value | Ref Range | Performed | Pathologist | | | | | At | Signature | + + + + + + | White Blood | 14.3 (H) | 4.0 - 11.0 K/uL | [facility] | | | Cells | | | [facility] | | | | | | MEDICAL | | | | | | CENTER - | | | | | | LABORATORY | | + + + + + + | Red Blood | 4.35 | 3.70 - 5.20 | [facility] | | | Cells | | M/uL | [facility] | | | | | | MEDICAL | | | | | | CENTER - | | | | | | LABORATORY | | + + + + + + | Hemoglobin | 12.6 | 11.5 - 16.0 | [facility] | | | | | g/dL | [facility] | | | | | | MEDICAL | | | | | | CENTER - | | | | | | LABORATORY | | + + + + + + | Hematocrit | 37.3 | 34.0 - 47.0 % | [facility] | | | | | | [facility] | | | | | | MEDICAL | | | | | | CENTER - | | | | | | LABORATORY | | + + + + + + | MCV | 85.6 | 83.0 - 101.0 fL | [facility] | | | | | | [facility] | | | | | | MEDICAL | | | | | | CENTER - | | | | | | LABORATORY | | + + + + + + | MCH | 28.9 | 28.0 - 35.0 pg | [facility] | | | | | | [facility] | | | | | | MEDICAL | | | | | | CENTER - | | | | | | LABORATORY | | + + + + + + | MCHC | 33.7 | 32.0 - 36.0 | [facility] | | | | | g/dL | [facility] | | | | | | MEDICAL | | | | | | CENTER - | | | | | | LABORATORY | | + + + + + + | RDW-CV | 14.0 | <15.0 % | [facility] | | | | | | [facility] | | | | | | MEDICAL | | | | | | CENTER - | | | | | | LABORATORY | | + + + + + + | Platelet | 364 | 140 - 440 K/uL | [facility] | | | Count | | | [facility] | | | | | | MEDICAL | | | | | | CENTER - | | | | | | LABORATORY | | + + + + + + | MPV | 8.1 | fL | [facility] | | | | | | [facility] | | | | | | MEDICAL | | | | | | CENTER - | | | | | | LABORATORY | | + + + + + + | % | 71.4 | 45.0 - 82.0 % | [facility] | | | Neutrophils | | | [facility] | | | | | | MEDICAL | | | | | | CENTER - | | | | | | LABORATORY | | + + + + + + | % | 19.7 (L) | 20.0 - 45.0 % | [facility] | | | Lymphocytes | | | [facility] | | | | | | MEDICAL | | | | | | CENTER - | | | | | | LABORATORY | | + + + + + + | % Monocytes | 7.4 | 4.0 - 12.0 % | [facility] | | | | | | [facility] | | | | | | MEDICAL | | | | | | CENTER - | | | | | | LABORATORY | | + + + + + + | % | 0.6 | 0.0 - 5.0 % | [facility] | | | Eosinophils | | | [facility] | | | | | | MEDICAL | | | | | | CENTER - | | | | | | LABORATORY | | + + + + + + | % Basophils | 0.9 | 0.0 - 1.0 % | [facility] | | | | | | [facility] | | | | | | MEDICAL | | | | | | CENTER - | | | | | | LABORATORY | | + + + + + + | Absolute | 10.20 (H) | 1.80 - 8.50 | [facility] | | | Neutrophils | | K/uL | [facility] | | | | | | MEDICAL | | | | | | CENTER - | | | | | | LABORATORY | | + + + + + + | Absolute | 2.80 | 0.60 - 3.20 | [facility] | | | Lymphocytes | | K/uL | [facility] | | | | | | MEDICAL | | | | | | CENTER - | | | | | | LABORATORY | | + + + + + + | Absolute | 1.10 (H) | 0.00 - 1.00 | [facility] | | | Monocytes | | K/uL | [facility] | | | | | | MEDICAL | | | | | | CENTER - | | | | | | LABORATORY | | + + + + + + | Absolute | 0.10 | 0.00 - 0.40 | [facility] | | | Eosinophils | | K/uL | [facility] | | | | | | MEDICAL | | | | | | CENTER - | | | | | | LABORATORY | | + + + + + + | Absolute | 0.10 | 0.00 - 0.10 | [facility] | | | Basophils | | K/uL | [facility] | | | | | | MEDICAL | | | | | | CENTER - | | | | | | LABORATORY | | + + + + + + + + | Specimen | + + | Blood | + + + + + + + | Performing | Address | City/State/Zipcode | Phone Number | | Organization | | | | + + + + + | [facility] | [address] | [place] | [phone] | | [facility] | | [address] | | | - LABORATORY | | | | + + + + + HCG, Serum, Quant (09/28/2016 8:50 PM PST) + + + + + + | Component | Value | Ref Range | Performed | Pathologist | | | | | At | Signature | + + + + + + | hCG Quant, | 0Comment: REFERENCE | 0 - 5 mIU/mL | [facility] | | | Serum | RANGE: MALE & | | [facility] | | | | NON- FEMALE | | MEDICAL | | | | <0.5-5.0 mIU/mL | | CENTER - | | | | | | LABORATORY | | | | B-hCG | | | | | | LEVELGestational Age | | | | | | Expected hCG | | | | | | Values | | | | | | | | | | | | 0 | | | | | | .2-1 week | | | | | | 5-50 | | | | | | mIU/mL1-2 weeks | | | | | | 50-500 | | | | | | mIU/mL2-3 weeks | | | | | | 100-5,000 | | | | | | mIU/mL3-4 weeks | | | | | | 500-10,000 | | | | | | mIU/mL4-5 weeks | | | | | | 1,000-50,000 | | | | | | mIU/mL5-6 weeks | | | | | | 10,000-100,000 | | | | | | mIU/mL6-8 weeks | | | | | | 15,000-200,000 | | | | | | mIU/mL2-3 months | | | | | | 10,000-100,000 | | | | | | mIU/mL | | | | + + + + + + + + | Specimen | + + | Blood | + + + + + + + | Performing | Address | City/State/Zipcode | Phone Number | | Organization | | | | + + + + + | [facility] | [address] | [place] | [phone] | | [facility] | | [address] | | | - LABORATORY | | | | + + + + + Urinalysis With Microscopic (09/28/2016 8:16 PM PST) + + + + + + | Component | Value | Ref Range | Performed | Pathologist | | | | | At | Signature | + + + + + + | Color, | Yellow | Light Yellow, | [facility] | | | Urine | | Yellow, Straw | [facility] | | | | | | MEDICAL | | | | | | CENTER - | | | | | | LABORATORY | | + + + + + + | Clarity, | Hazy (A) | Clear | [facility] | | | Urine | | | [facility] | | | | | | MEDICAL | | | | | | CENTER - | | | | | | LABORATORY | | + + + + + + | pH, Urine | 5.0 | 5.0 - 8.0 | [facility] | | | | | | [facility] | | | | | | MEDICAL | | | | | | CENTER - | | | | | | LABORATORY | | + + + + + + | Specific | 1.027 | 1.001 - 1.030 | [facility] | | | [place], | | | [facility] | | | Urine | | | MEDICAL | | | | | | CENTER - | | | | | | LABORATORY | | + + + + + + | Protein, | Negative | Negative | [facility] | | | Urine | | | [facility] | | | | | | MEDICAL | | | | | | CENTER - | | | | | | LABORATORY | | + + + + + + | Blood, | Moderate (A) | Negative | [facility] | | | Urine | | | [facility] | | | | | | MEDICAL | | | | | | CENTER - | | | | | | LABORATORY | | + + + + + + | Glucose, | Negative | Negative | [facility] | | | Urine | | | [facility] | | | | | | MEDICAL | | | | | | CENTER - | | | | | | LABORATORY | | + + + + + + | Ketones, | 20 mg/dL (A) | Negative | [facility] | | | Urine | | | [facility] | | | | | | MEDICAL | | | | | | CENTER - | | | | | | LABORATORY | | + + + + + + | Bilirubin, | Negative | Negative | [facility] | | | Urine | | | [facility] | | | | | | MEDICAL | | | | | | CENTER - | | | | | | LABORATORY | | + + + + + + | Nitrite, | Negative | Negative | [facility] | | | Urine | | | [facility] | | | | | | MEDICAL | | | | | | CENTER - | | | | | | LABORATORY | | + + + + + + | Leukocyte | Trace (A) | Negative | [facility] | | | Esterase, | | | [facility] | | | Urine | | | MEDICAL | | | | | | CENTER - | | | | | | LABORATORY | | + + + + + + | Urobilinoge | Negative | 0.2 mg/dL, 1.0 | [facility] | | | n, Urine | | mg/dL, Negative | [facility] | | | | | | MEDICAL | | | | | | CENTER - | | | | | | LABORATORY | | + + + + + + | White Blood | 2-5 (A) | 0 - 2 /HPF | [facility] | | | Cells, | | | [facility] | | | Urine | | | MEDICAL | | | | | | CENTER - | | | | | | LABORATORY | | + + + + + + | Red Blood | 2-5 (A) | 0 - 2 /HPF | [facility] | | | Cells, | | | [facility] | | | Urine | | | MEDICAL | | | | | | CENTER - | | | | | | LABORATORY | | + + + + + + | Squamous | 15-25 (A) | 0 - 2 /LPF | [facility] | | | Epithelial | | | [facility] | | | Cells, | | | MEDICAL | | | Urine | | | CENTER - | | | | | | LABORATORY | | + + + + + + | Bacteria, | 1+ (A) | Negative /HPF | [facility] | | | Urine | | | [facility] | | | | | | MEDICAL | | | | | | CENTER - | | | | | | LABORATORY | | + + + + + + | Mucus, | Present (A) | Negative /LPF | [facility] | | | Urine | | | [facility] | | | | | | MEDICAL | | | | | | CENTER - | | | | | | LABORATORY | | + + + + + + | Hyaline | 2-5 (A) | 0 - 2 /LPF | [facility] | | | Casts, | | | [facility] | | | Urine | | | MEDICAL | | | | | | CENTER - | | | | | | LABORATORY | | + + + + + + + + | Specimen | + + | Urine | + + + + + | Narrative | Performed At | + + + | Urine culture not indicated. | [facility] | | | [facility] | | | [facility]ENTER | | | - LABORATORY | + + + + + + + + | Performing | Address | City/State/Zipcode | Phone Number | | Organization | | | | + + + + + | [facility] | [address] | [place] | [phone] | | [facility] | | [address] | | | - LABORATORY | | | | + + + + + POCT Urinalysis Dipstick Automated (09/28/2016 7:49 PM PST) + + + + + + | Component | Value | Ref Range | Performed | Pathologist | | | | | At | Signature | + + + + + + | Color, UA, | Angie (A) | Yellow, Light | | | | POC | | Yellow | | | + + + + + + | Clarity, | Clear | | | | | UA, POC | | | | | + + + + + + | Glucose, | Negative | Negative | | | | UA, POC | | | | | + + + + + + | Bilirubin, | 1+ (A) | Negative | | | | UA, POC | | | | | + + + + + + | Ketones, | 1+ (A) | Negative, 100 | | | | UA, POC | | mg/dL | | | + + + + + + | Specific | 1.030 | 1.001 - 1.030 | | | | [place], | | | | | | UA, POC | | | | | + + + + + + | Blood, UA, | 2+ (A) | Negative | | | | POC | | | | | + + + + + + | pH, UA, POC | 5.5 | 5.0, 6.0, 7.0, | | | | | | 8.0, 5.5, 6.5, | | | | | | 7.5 | | | + + + + + + | Protein, | 1+ (A) | Negative | | | | UA, POC | | | | | + + + + + + | Urobilinoge | 0.2 | 0.2, Negative, | | | | n, UA, POC | | Normal, < 0.2 | | | | | | mg/dL, 1 mg/dL, | | | | | | < 0.2 E.U./dl, | | | | | | 1.0 E.U./dL, | | | | | | 0.2 mg/dL | | | + + + + + + | Nitrite, | Negative | Negative | | | | UA, POC | | | | | + + + + + + | Leukocyte | Negative | Negative | | | | Esterase, | | | | | | UA, POC | | | | | + + + + + + | Reducing | | | | | | Substances, | | | | | | Urine | | | | | + + + + + + | Bilirubin | | Negative | | | | Confirmatio | | | | | | n by | | | | | | Ictotest, | | | | | | Urine | | | | | + + + + + + | Remark | | | | | + + + + + + + + | Specimen | + + | Urine specimen | | (specimen) | + + POCT Test, Urine, QUAL (09/28/2016 7:48 PM PST) + + + + + + | Component | Value | Ref Range | Performed | Pathologist | | | | | At | Signature | + + + + + + | | Negative | Negative | | | | Test, | | | | | | Urine, POC | | | | | + + + + + + | Internal QC | Acceptable | | | | + + + + + + | Specific | >=1.030 (A) | 1.010, 1.015, | | | | [place], | | 1.020, 1.025 | | | | POC | | | | | + + + + + + | Lot Number | [id number] | | | | + + + + + + | Expiration | 2017- | | | | | Date | | | | | + + + + + + + + | Specimen | + + | Urine specimen | | (specimen) | + + documented in this encounter Visit Diagnoses + + | Diagnosis | + + | Menometrorrhagia - Primary Excessive or frequent menstruation | + + documented in this encounter Administered Medications + +--------+ +--------+------+------+ | Medication Order | MAR | Action | Dose | Rate | Site | | | Action | Date | | | | + +--------+ +--------+------+------+ | ibuprofen (ADVIL,MOTRIN) tablet | Given | 09/28/19 | 600 mg | | | | 600 mg 600 mg, Oral, ONCE, Wed | | 17 10:14 | | | | | 09/28/16 at 2150, For 1 dose, Give | | PM PST | | | | | with food., | | | | | | + +--------+ +--------+------+------+ +---+---+ | | | +---+---+ documented in this encounter
[~2020-04-26 12:50] MED LIST changes: +IBU-200200 MG PO; +KEFLEX500 MG PO
[2020-04-26] MEDS ORDERED: NORCO 5-325 TA1 EACH PO (13:33)
== END 2020-04-26 13:54 | disposition home or self-care (01) ==
LOC: ED 12:50
DX: S83.92XA Sprain of unspecified site of left knee, initial encounter (principal); J44.9 Chronic obstructive pulmonary disease, unspecified; F17.200 Nicotine dependence, unspecified, uncomplicated; W10.9XXA Fall (on) (from) unspecified stairs and steps, initial encounter
CPT/HCPCS: 73560; 99283-25

== ENCOUNTER 2020-04-29 09:04 | Emergency (ER) | payer OTHER ==
[~2020-04-29] VITALS: Ht 177.8 cm; Wt 108.9 kg
--- OUTSIDE RECORDS SUMMARY | ~2020-04-29 | XMS | Clinical Summary ---
Demographics + + + | Address | [address] | | | [place] [address] | + + + | Home Phone | | + + + | Preferred Language | Unknown | + + + | Marital Status | | + + + | Baptism Affiliation | Unknown | + + + | Race | Unknown | + + + | Ethnic Group | Unknown | + + + Author + + + | Author | [facility] | | | and [place] | + + + | Organization | [facility] | | | and [place] [...] Team Providers + +------+ + | Care National Account Executive Name | Role | Phone | + [...] Patient | Explanation | | | | Embedded Software Test Engineer | | + + + + + | Power of | | | | | Client Solutions Specialist | | | | + + + + + | Advance | 09/28/2016 10:21 | | | | Directive | PM | | | + + + + +
--- OUTSIDE RECORDS SUMMARY | ~2020-04-29 | XMS | Encounter Summary ---
Demographics + + + | Address | [address] | | | [place] [address] | + + + | Home Phone | | + + + | Preferred Language | Unknown | + + + | Marital Status | | + + + | Catholic Affiliation | Unknown | + + + | Race | Unknown | + + + | Ethnic Group | Unknown | + + + Author + + + | Author | [facility] | | | and [place] | + + + | Organization | [facility] | | | and [...] Team Providers + +------+ + | Care Check Totaler Name | Role | Phone | + [...] + + | 01/06/ | Office | [facility] | Amara Clayton, | Low back strain, | | 2017 | Visit | CARE [address] | Need updated | initial encounter | | | | [place] | address | (Primary Dx) | | | | [address] | | | | | | [phone] | | | +--------+---------+ + + + [...] Normal without rash or eccymosis. Review from [place] ER notes. 2 visits 12/24 and 12/28. [...] from the documentation From the ER in [place]. I gave her light duty seated work [...] weaknes s. This note was dictated using [employer] voice recognition software. Occasional wrong- word or [...]
--- OUTSIDE RECORDS SUMMARY | ~2020-04-29 | XMS | Encounter Summary ---
Demographics + + + | Address | [address] | | | [place] [address] | + + + | Home Phone | | + + + | Preferred Language | Unknown | + + + | Marital Status | | + + + | Pentecostal Affiliation | Unknown | + + + | Race | Unknown | + + + | Ethnic Group | Unknown | + + + Author + + + | Author | [facility] | | | and [place] | + + + | Organization | [facility] | | | and [place] | + + + | Address | Unknown | + + + | Phone | Unavailable | + + + Support + + +---------+ + | Name | Relationship | Address | Phone | + + +---------+ + | rIis Tapia | ECON | Unknown | | + + +---------+ + Care Team Providers + +------+ + | Care Supervisory Historian Name | Role | Phone | + [...] [address] [place] | [place] [address] | encounter (Primary | | | | [place], [place] | [phone] | Dx); Place of | | | | [address] | | occurrence, | | | | [phone] | | industrial places | | | [...] MD - 01/26/2017 11:23 AM PDTEmployer: Romaine [employer] Guarantor:joe Date of injury: 12/24/16 Claim number: [...] and evaluated in the emergency department at [facility], states x-rays of the ribs were obtained [...] all toes. She was seen again in [facility] emergency department at [facility], MRI of the lumbar spine was ordered [...] of this claim. She has been using agad-dwj-ezjcoub medi cations on an as-needed basis. Has [...] Vital signs as noted, nursing notes reviewed. Xpesexu-ttqo-mzglpttnp, well-nourished, in no apparent distress, pleasant cooperative. [...] indicated that on 12/09/16 she presented to [facility] ED complaining of pain to the back and rib area after du g on a roberto carlos while attempting to put a tire on her car she then had x-rays which were negativ e, she was given an anti-inflammatory and released. A second ED visit 12/24/16 with complaints of back pain and rectal pain after rectal intercou rse 2 weeks prior. Prescribed [place] and Robaxin. A third ED visit 12/28/16 complaining of chronic low back pain after trauma 6 years ago, on chronic narcotics in [place], recently moved here, complained of heavy lifting [...] MMI status. This note was dictated using Xtract voice recognition software. Occasional wrong- word or [...] preserved with no evidence for compression | [facility] | | fractures. Disc height are maintained. [...] ST. | [address] | [place], [place] | [phone] | | [facility] | | [address] | | | - IMAGING | | | | + + + + + documented in this encounter Visit Diagnoses + + | Diagnosis | + + | Back contusion, unspecified laterality, initial encounter - Primary | + + | Place of occurrence, industrial places and premises | + + documented in this encounter
--- OUTSIDE RECORDS SUMMARY | ~2020-04-29 | XMS | Encounter Summary ---
Demographics + + + | Address | [address] | | | [place] [address] | + + + | Home Phone | | + + + | Preferred Language | Unknown | + + + | Marital Status | | + + + | Temple Affiliation | Unknown | + + + | Race | Unknown | + + + | Ethnic Group | Unknown | + + + Author + + + | Author | [facility] | | | and [place] | + + + | Organization | [facility] | | | and [place] [...] Team Providers + +------+ + | Care Axminster Weaver Name | Role | Phone | + [...] + + | 02/01/ | Office | [facility] | Yary Beckwith | Low back pain, | | 2016 | Visit | CARE [address] | Ronald Sebastian MD | unspecified back | | | | [place] | [address] | pain laterality, | | | | [address] | [place] | unspecified | | | | [phone] | [address] | chronicity, with | | | | [...] MD - 02/01/2017 3:08 PM PDTEmployer: [email or web address] Claim #: [id number] Date of Injury: 12/24/2016 Insurance carrier: ARIANA Tapia Chief Complaint: Back injury HPI: Patient has had a changing story documented on her visit of 01/26. She was initially s een and in the ER down in [place]. She has a pending MRI test because [...]
--- OUTSIDE RECORDS SUMMARY | ~2020-04-29 | XMS | Encounter Summary ---
Demographics + + + | Address | [address] | | | [place] [address] | + + + | Home Phone | | + + + | Preferred Language | Unknown | + + + | Marital Status | | + + + | Holiness Affiliation | Unknown | + + + | Race | Unknown | + + + | Ethnic Group | Unknown | + + + Author + + + | Author | [facility] | | | and [place] | + + + | Organization | [facility] | | | and [...] Team Providers + +------+ + | Care Plunger Scoop Operator Name | Role | Phone | + +------+ + | No, Physician | PCP | Unavailable | + +------+ + Encounter Details +--------+ + + + + | Date | Type | Department | Care Team | Description | +--------+ + + + + | 01/26/ | Hospital | [facility] | Angelina Treviño | Back contusion, | | 2017 | Encounter | [facility] | MD Charity [address] | unspecified | | | | [address] [place] | [address] [place] | laterality, initial | | | | [place], [place] | [place] [address] | encounter; Place of | | | | [address] | [phone] | occurrence, | | | | [phone] | | industrial places | | | [...] | + + + + + | [facility] | [address] | [place] | [phone] | | [facility] | | [address] | | | - IMAGING | | | | + + + + + documented in this encounter Visit Diagnoses + + | Diagnosis | + + | Back contusion, unspecified laterality, initial encounter | + + | Place of occurrence, industrial places and premises | + + documented in this encounter"
--- OUTSIDE RECORDS SUMMARY | ~2020-04-29 | XMS | Encounter Summary ---
Demographics + + + | Address | [address] | | | [place] [address] | + + + | Home Phone | | + + + | Preferred Language | Unknown | + + + | Marital Status | | + + + | Yarsani Affiliation | Unknown | + + + | Race | Unknown | + + + | Ethnic Group | Unknown | + + + Author + + + | Author | [facility] | | | and [place] | + + + | Organization | [facility] | | | and [...] Team Providers + +------+ + | Care Ways Operator Name | Role | Phone | [...] | | | | CENTER [address] | [facility] [place] | | | | | [place], [place] | [place] [address] | | | | | [address] | [phone] | | | | | [phone] | | | +--------+ + + + [...] 09/28/2016Scheduled ibuprofen for 5 days Follow-up with CRITICAL POWER TECHNICIAN AttachmentsThe following attachments cannot be sent through Care Everywhere.DYSFUNCTIONAL U TERINE BLEEDING (GRENADIAN)documented in this encounter Medications at Time of [...] might be different f rom the original. [facility] Emergency Department Encounter Note [address] [place] [address] PCP:No Physician on file [phone] CHIEF COMPLAINT Chief Complaint Patient presents with Abdominal Pain Vaginal Bleeding [facility] Janay Tapia is a 31 y.o. 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 The vaginal bleeding has been heavy [...] She has menome trorrhagia. Outpatient follow-up with CRITICAL POWER TECHNICIAN is indicated. FINAL IMPRESSION 1. Menometrorrhagia PLAN Follow-up Information Schedule an appointment as soon as possible for a visit with Rolando Lizarraga DO. Specialty: Obstetrics and Gynecology Contact information: [facility] [address] [facility] [address] Discharge Medication List as of 09/28/2016 21:57 START taking these medications Details ibuprofen (ADVIL,MOTRIN) 600 MG tablet Take 1 tablet by mouth every 6 hours as needed for P ain for up to 5 days.Disp-20 tablet, R-0, Print Dean Camargo MD 09/28/16 8523 docume nted in this encounter Miscellaneous Notes [...] eGFR, | 80Comment: GLOMERULAR | mL/min/1.73m2 | [facility] | | | non- | FILTRATION | | . FANNY | | | [place] | RATE,ESTIMATED | | MEDICAL | | | | mL/min/1.95s8Raya than | | CENTER - | | [...] | 9.7 | 8.3 - 10.5 | [place] | | | | | mg/dL | [...] | | | Protein | | | [facility] | | | | | | MEDICAL [...] + | [facility] | [address] | [place] | [phone] | | [facility] | | [address] | | | - LABORATORY | | [...] | | | Cells | | | [facility] | | | | | | MEDICAL | | | | | | CENTER - | | | | | | LABORATORY | | + + + + + + | Red Blood | 4.35 | 3.70 - 5.20 | [facility] | | | Cells | | M/uL | [facility] | | | | | | MEDICAL [...] + | [facility] | [address] | [place] | [phone] | | [facility] | | [address] | | | - LABORATORY | | [...] + | [facility] | [address] | [place] | [phone] | | [facility] | | [address] | | | - LABORATORY | | [...] - 1.030 | [facility] | | | [place], | | | [facility] | | [...] + | [facility] | [address] | [place] | [phone] | | [facility] | | [address] | | | - LABORATORY | | [...] 1.001 - 1.030 | | | | [place], | | | | | | UA, [...] | 1.010, 1.015, | | | | [place], | | 1.020, 1.025 | | | | POC | | | | | + + + + + + | Lot Number | [id number] | | | | + + + [...]
== END 2020-04-29 09:54 | disposition home or self-care (01) ==
LOC: ED 09:04
DX: S83.92XA Sprain of unspecified site of left knee, initial encounter (principal); J44.9 Chronic obstructive pulmonary disease, unspecified; F17.200 Nicotine dependence, unspecified, uncomplicated; X50.1XXA Overexertion from prolonged static or awkward postures, initial encounter
CPT/HCPCS: 99283

== ENCOUNTER 2022-11-16 20:01 | Emergency (ER) | payer OTHER ==
[~2022-11-16] VITALS: Ht 177.8 cm; Wt 95.0 kg
--- OUTSIDE RECORDS SUMMARY | 2022-11-16 20:09 | XMS ---
PreManage Notification: DAFNE HANSEN Security Dehydration Plant Operator Events 1 event(s) in the past 18 months Most recent security events: Elopement at [facility] 09/19/2022 21:37 - Patient eloped before treatment completed. - Patient with suicidal and/or homicidal ideations eloped. - Patient eloped with IV in place. Details: Patient LWBS. CRITERIA MET - Group Notification - [facility] - Has Care Guidelines CARE PROVIDERS -Regan- Dentist: Television Presenter [facility] PHONE: [phone] GHAZAL EDWARD [facility] 12/19/2018-Current PHONE: [phone] Guidelines Source: [facility] Guidelines Date: 10/19/2022 Care Coordination: ENCOURAGE PATIENT TO FIND AND USE A PCP FOR CHRONIC AND NON-EMERGENT MEDICAL PROBLEMS. GIVE PATIENT PRE K LEAD TEACHERFAMILY PRACTICE PHYSICIAN ASSISTANT INFORMATION TO CALL FOR HELP AND QUESTIONS. CHRIS ESPINOSA RN\T\[facility];[phone] AIRCRAFT ARMAMENT MECHANIC [facility] Care History Medical/Surgical 04/30/2020 [facility] - CHW SPOKE WITH PATIENT-DISCUSSED PATIENT NO LONGER HAS A PCP. - [facility] - PATIENT STATED SHE WOULD CONTACT THE CLINIC HERSELF AND SET UP A PCP APT FOR FUTURE FOLLOW UP. Yogesh VISIT COUNT (12 MO.) [facility] NOTE: Visits indicate total known visits. ED/UCC VISIT TRACKING (12 MO.) [facility] COMPLAINT: - BILATE EAR PAIN,RT SIDE DENTAL PAIN 09/19/2022 21:37 [facility] Castillo [place] TYPE: Emergency COMPLAINT: - TOOTH ACHE INPATIENT VISIT TRACKING (12 MO.) No inpatient visits to display in this time frame [email or web address]
[2022-11-16] MEDS ORDERED: HYDROCODON-ACE1 EA10 PO (23:05)
[2022-11-16] MEDS ORDERED: AMOX TR-K CLV1 EAC1 PO (23:05)
== END 2022-11-16 23:15 | disposition home or self-care (01) ==
LOC: ED 20:01
DX: L03.211 Cellulitis of face (principal); J44.9 Chronic obstructive pulmonary disease, unspecified; F17.200 Nicotine dependence, unspecified, uncomplicated; Z79.899 Other long term (current) drug therapy
CPT/HCPCS: 36415; 70491; 80053; 85025; 99283-25; A9270; Q9967

== ENCOUNTER 2025-01-09 10:22 | Emergency (ER) | payer OTHER ==
[~2025-01-09] VITALS: Ht 177.8 cm; Wt 112.5 kg
[~2025-01-09 10:22] MED LIST changes: +AMOX TR-K CLV1 EAC1 PO; +HYDROCODON-ACE1 EA10 PO
[2025-01-09] MEDS ORDERED: BACITRACIN 0.9 GM 1 PKT PKT TOP ONE (10:30)
[2025-01-09] MEDS ORDERED: DIPHTH,PERTUSS(ACELL),TET VAC 0.5 ML SYRINGE IM ONE (10:30)
[2025-01-09] MEDS ORDERED: ACETAMINOPHEN 500 MG TAB PO ONE (10:30)
[2025-01-09] MEDS ORDERED: CEPHALEXIN500 M1 PO (10:35)
[2025-01-09] MEDS ORDERED: NAPROSYN500 MG PO (10:35)
[2025-01-09 11:01] VITALS: BP 154/108
== END 2025-01-09 11:01 | disposition home or self-care (01) ==
LOC: ED 10:22
DX: S21.012A Laceration without foreign body of left breast, initial encounter (principal); Z23 Encounter for immunization; J44.9 Chronic obstructive pulmonary disease, unspecified; X58.XXXA Exposure to other specified factors, initial encounter
CPT/HCPCS: 80053; 80307; 84443; 84703; 85025; 90471; 90715; 93005; 93010; 99282-25; A9270; G0480

== ENCOUNTER 2025-05-23 19:42 | Emergency (ER) | payer OTHER ==
[~2025-05-23] VITALS: Ht 177.8 cm; Wt 106.0 kg
[~2025-05-23 19:42] MED LIST changes: +CEPHALEXIN500 M1 PO; +NAPROSYN500 MG PO
[2025-05-23] MEDS ORDERED: LIDOCAINE HCL 4% 50 ML BTL TOP ONE (21:00)
[2025-05-23 21:10] VITALS: BP 128/93
== END 2025-05-23 21:10 | disposition home or self-care (01) ==
LOC: ED 19:42
DX: J02.8 Acute pharyngitis due to other specified organisms (principal); B97.89 Other viral agents as the cause of diseases classified elsewhere; J44.89 Other specified chronic obstructive pulmonary disease; F17.200 Nicotine dependence, unspecified, uncomplicated; Z79.899 Other long term (current) drug therapy; Z79.82 Long term (current) use of aspirin
CPT/HCPCS: 87651; 99283

== ENCOUNTER 2025-08-29 17:45 | Emergency (ER) | payer OTHER ==
[~2025-08-29] VITALS: Ht 177.8 cm; Wt 108.0 kg
[2025-08-29] MEDS ORDERED: METOCLOPRAMIDE HCL 10 MG/2 ML SDV IV ONE (20:15)
[2025-08-29] MEDS ORDERED: SODIUM CHLORIDE 0.9% 1,000 ML IV SCH (20:15)
[2025-08-29] MEDS ORDERED: KETOROLAC TROMETHAMINE 30 MG/ML VIAL IV ONE (20:15)
[2025-08-29 21:40] VITALS: BP 119/73
== END 2025-08-29 21:40 | disposition home or self-care (01) ==
LOC: ED 17:45
DX: G43.909 Migraine, unspecified, not intractable, without status migrainosus (principal); J45.909 Unspecified asthma, uncomplicated; F17.200 Nicotine dependence, unspecified, uncomplicated; Z79.2 Long term (current) use of antibiotics; Z79.899 Other long term (current) drug therapy
CPT/HCPCS: 96361; 96374; 96375; 99283-25; J1200; J1885; J2765; J7030